=== PATIENT | male | born 1955 | race Caucasian/White ===

== ENCOUNTER 2017-09-05 09:23 | Emergency (ER) | payer MEDICARE ==
--- NOTE | 2017-09-05 11:48 | ED ---
Head Injury - HPI Summary HPI Summary: 61 presents to ED BIBA with complaints of falling from standing position, mechanical fall causing him to hit front head on floor just [employer]. Patient lives at [facility]. Patient did not lose consciousness and denies pain. No lacerations. No vomiting or vision changes. Patient is mainly non verbal although he does respond to questions by shaking head yes or no. Is severely demented. Small hematoma to right forehead. No neck pain or abdominal pain or other concerns for injury at this time. No anticoagulant use. Is able to bear weight and walk, however is unsteady on feet, which causes him to fall. Patient' s baseline. - History Of Current Complaint Chief Complaint: EDHeadInjury Stated Complaint: FALL Time Seen by Provider: 09/05/17 10:00 Hx Obtained From: Patient, Family/Methods And Procedures Analyst - long term, EMS Mechanism Of Injury: Fall From A Standing Position Onset/Duration: Started Hours Ago, Traumatic Severity Currently: None Pain Intensity: 0 Pain Scale Used: 0-10 Numeric Location of Head Injury: Frontal Associated Signs And Symptoms: Negative - however patient is demented therefore history and symptoms are limited - Allergies/Home Medications Allergies/Adverse Reactions: Allergies Allergy/AdvReac Type Severity Reaction Status Date / Time No Known Allergies Allergy Verified 09/05/17 10:06 Home Medications: Home Medications Atorvastatin* [Lipitor*] 20 mg PO DAILY 09/05/17 [History Confirmed 09/05/17] FLUoxetine CAP* [PROzac CAP*] 10 mg PO BID 09/05/17 [History Confirmed 09/05/17] Mirtazapine TAB* [Remeron TAB*] 30 mg PO BEDTIME 09/05/17 [History Confirmed ] Oxybutynin XL TAB* [Ditropan XL TAB*] 10 mg PO DAILY 09/05/17 [History Confirmed 09/05/17] QUEtiapine TAB* [SEROquel TAB*] 25 mg PO BEDTIME 09/05/17 [History Confirmed ] Ramipril CAP* [Altace CAP*] 5 mg PO DAILY 09/05/17 [History Confirmed 09/05/17] PMH/Surg Hx/FS Hx/Imm Hx Endocrine/Hematology History: Denies: Hx Anticoagulant Therapy Cardiovascular History: Reports: Hx Hypercholesterolemia, Hx Hypertension Denies: Hx Pacemaker/ICD History: Reports: Other Problems/Disorders - urinary incontinence Sensory History: Denies: Hx Hearing Aid Neurological History: Reports: Hx Dementia Psychiatric History: Denies: Hx Panic Disorder - Surgical History Surgery Procedure, Year, and Place: DENTAL SURGERY - Immunization History Immunizations Up to Date: Yes Infectious Disease History: No Infectious Disease History: Denies: Traveled Outside the [place] in Last 30 Days - Family History Known Family History: Positive: None - Social History Alcohol Use: None Substance Use Type: Reports: None Smoking Status (MU): Never Smoked Tobacco Review of Systems - ROS Summary Review of Systems Summary: patient shakes head no, although AMS due to dementia Constitutional: Negative Cardiovascular: Negative Respiratory: Negative Gastrointestinal: Negative Musculoskeletal: Negative Neurological: Negative All Other Systems Reviewed And Are Negative: Yes Physical Exam Triage Information Reviewed: Yes Vital Signs On Initial Exam: Initial Vitals BP 131/83 09/05/17 09:30 HR: 99 O2: 96 Temp: 99.2 Resp: 14 Vital Signs Reviewed: Yes Completion Of Physical Exam Limited Due To: Dementia Appearance: Positive: Well-Appearing, No Pain Distress, Well-Nourished Skin: Positive: Warm, Skin Color Reflects Adequate Perfusion, Dry, Other - small walnut sized hemoatoma on right front scalp without laceration ecchymosis or erythema. Negative: Cold, Numb, Cyanosis @, Pale, Erythema @ Head/Face: Positive: Normal Head/Face Inspection, Scalp - hematoma right frontal scalp as described above Eyes: Positive: Conjunctiva Clear ENT: Positive: Pharynx normal, Uvula midline, Other - does not appear to have broken denticia or bite tongue Neck: Positive: Supple, Nontender Respiratory/Lung Sounds: Positive: Clear to Auscultation, Breath Sounds Present. Negative: Rales, Rhonchi, Wheezes Cardiovascular: Positive: Normal, RRR, Pulses are Symmetrical in both Upper and Lower Extremities. Negative: Murmur, Rub Abdomen Description: Positive: Nontender, Soft Bowel Sounds: Positive: Present Musculoskeletal: Positive: Normal, Strength/ROM Intact Neurological: Positive: Normal, Sensory/Motor Intact, NV Bundle Intact Distally , Normal Gait - unsteady, patient's baseline, Facial Symmetry, Speech Normal - Shannan Coma Scale Best Eye Response: 4 - Spontaneous Best Motor Response: 6 - Obeys Commands Best Verbal Response: 4 - Confused - due to dementia, patient's baseline Coma Scale Total: 14 Diagnostics - Vital Signs Vital Signs Temp Pulse Resp BP Pulse Ox 09/05/17 10:33 118/66 09/05/17 10:12 99 94 09/05/17 10:00 99 117/98 95 09/05/17 09:33 99.2 F 100 14 131/83 96 09/05/17 09:32 103 95 09/05/17 09:30 131/83 - Laboratory Lab Statement: Any lab studies that have been ordered have been reviewed, and results considered in the medical decision making process. - CT brain CT Interpretation: No Acute Changes - Chronic findings as described above similar in appearance to the August 20, 2012 MRI of the brain without CT evidence of calvarial fracture or acute intracranial hemorrhage. CT Interpretation Completed By: Radiologist Re-Evaluation - Re-Evaluation First Eval Re-Evaluation Time: 12:01 Change: Unchanged - updated on results, still feeling fine and acting appropriately Head Injury Course/Dx Course Of Treatment: ct brain obtained and negative. appears to be at normal baseline. ice hematoma, tylenol/ibu as needed for pain if needed. no other concerns at this time. follow up with pcp. normal vitals and normal physical exam at this time. aware of worsening signs and symptoms to watch out for. - Diagnoses Differential Diagnosis/HQI/PQRI: Concussion Without LOC, Other - hematoma, head injury Provider Diagnoses: Traumatic hematoma of scalp, Head injury due to trauma Discharge - Discharge Plan Condition: Good Disposition: HOME Patient Education Materials: Head Injury (ED), Hematoma (ED) Referrals: Karina Carter MD [Primary Care Provider] - Additional Instructions: Ice hematoma. ibuprofen/tylenol as needed for discomfort. Increase fluid intake and get plenty of rest. Any new or worsening symptoms please seek medical attention and return to ED ( severe headache, pupil size changes, vomiting, altered mental status) Ct brain exam was normal and without acute findings. Follow up with PCP for recheck within 5-7 days.
--- NOTE | 2017-09-05 11:54 | RAD ---
INDICATION: Trauma and a patient with reported dementia COMPARISON: MRI of the brain dated August 20, 2012 TECHNIQUE: Contiguous axial sections of the brain were obtained from the skull base to the vertex without contrast. FINDINGS: Image quality is limited by patient motion artifact The ventricles, cisterns and sulci symmetrical involutional changes similar in appearance to the previous MR the brain.. There is mild periventricular and subcortical white matter hypoattenuation most consistent with chronic microvascular disease and similar in appearance to the previous MRI of the brain. Otherwise the minor-white matter differentiation is adequately maintained and there is no sulcal effacement. No significant focal abnormality or mass effect is present. There is no evidence for intracranial hemorrhage. No significant focal osseous abnormality is present. The visualized portion of the paranasal sinuses appear clear. The mastoid air cells are well aerated bilaterally. IMPRESSION: Chronic findings as described above similar in appearance to the August 20, 2012 MRI of the brain without CT evidence of calvarial fracture or acute intracranial hemorrhage.
[2017-09-05 12:35] VITALS: BP 00/00
== END 2017-09-05 12:30 | disposition home or self-care (01) ==
LOC: ED 09:23
DX: S00.03XA Contusion of scalp, initial encounter (principal); W18.30XA Fall on same level, unspecified, initial encounter; Y92.9 Unspecified place or not applicable
CPT/HCPCS: 70450; 99284

== ENCOUNTER 2018-01-19 18:59 | Observation (INO) | payer MEDICARE ==
--- OUTSIDE RECORDS SUMMARY | 2018-01-19 19:36 | XMS REPORT ---
:1955 External Reference #:[id number] Author Organization [employer] Address [address] [place] [address] [place] [address] Phone [phone] Care Team Providers Name Role Phone Krystin Shipley DO Care Team Information Biopsychologist Unavailable Karina Carter MD Primary Care Physician Unavailable Payers Type Date Identification Numbers Payment Provider Subscriber Medicare Primary Effective: Policy Number: Medicare Nolberto Peraltazoie 2013 [id number] PayID: [id number] [address] [place] [address] Medigap Part B Policy Number: [id number] [employer] Nolberto Martinezsourav PayID: [id number] [address] [place] [address] Medigap Part B Effective: Policy Number: BS Adiel Riojas Che 2012 [id number] Expires: 2013 PayID: [id number] [address] [address] Medigap Part B Effective: Policy Number: BS Adiel Riojas Che 2013 [id number] Expires: 2013 Group Name: [employer] [address] PayID: [id number] [id number] Problems Date Description Provider Status Onset: 08/12/2012 Benign essential hypertension Karina Carter M.D. Active Onset: 11/16/2012 Dementia Unspec W/O Behavioral Karina Carter M.D. Active Disturbance Onset: 08/15/2014 Melanoma in situ of skin (clinical) Karina Carter M.D. Active Onset: 05/15/2015 Essential hypertension Karina Carter M.D. Active Onset: 10/07/2017 Other frontotemporal dementia Krystin Shipley D.O. Active Onset: 10/07/2017 Dementia Krystin Shipley D.O. Active Onset: 10/07/2017 Hyperlipidemia Krystin Shipley D.O. Active Onset: 10/07/2017 Weight decreased Karina Carter M.D. Active Onset: 10/07/2017 Disease Armando Bill M.D. Active Onset: 10/07/2017 Mantoux: negative Nurse Visit A Active Onset: 10/07/2017 Other abnormalities of breathing Karina Carter M.D. Active Onset: 10/07/2017 Dyspnea Armando Bill M.D. Active Onset: 10/07/2017 Urinary incontinence Jacoby Dickson NP Active Onset: 10/07/2017 Mixed hyperlipidemia Karina Carter M.D. Active Onset: 10/07/2017 frontotemporal dementia,other Fide Onofre NP Active Onset: 10/07/2017 Adult health examination Karina Carter M.D. Active Onset: 10/07/2017 Viral disease Karina Carter M.D. Active Onset: 10/07/2017 History of malignant melanoma of the Karina Carter M.D. Active skin Onset: 10/07/2017 Diphtheria + pertussis + tetanus Karina Carter M.D. Active vaccine Onset: 10/07/2017 Cerebral degeneration Armando Bill M.D. 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 Also CAD onset in his 50s Social History Type Date Description Comments Marital Status Single never Lives With Mother 2015: unable to live independently due to dementia Occupation [employer]. 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 Ramipril 10/07 Active Capsules 5mg 1 by mouth I10 Megan every day POLY Vinson Atorvastatin 10/07 Active Tablets 20mg take 1 tablet E78.5 Megan at bedtime POLY Vinson Oxybutynin 10/07 Active Tablets ER 10mg 1 by mouth R32 Megan Chloride ER 24HR every day POLY Vinson Vitamin B-12 10/07 Active Tablets ER 1000mcg 1 tab PO qd D51.9 Megan ER Karel, POLY Melatonin 10/07 Active Capsules 3mg 1 tab PO QHS G47.00 Megan POLY Vinson Milk Of 10/07 Active Suspension 400mg/5ML 355ml 30ml daily q K59.00 Megan Magn 24 hrs prn Karel, for 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 Vitamin D3 10/07/2017 Active Capsules 2000U 1 by mouth E55.9 Megan nit every day POLY Vinson Mirtazapine 08/17/2017 Active Tablets 30mg 30tabs 1 by mouth R63.4 Armando Carias thom Bill M.D. 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 Quetiapine 07/10/2017 Hx Tablets 50mg 60tabs 2 po qhs R45.1 Armando S. Fumarate - Fly, 07/15/2017 M.DTanner Quetiapine 04/15/2017 Hx Tablets 25mg 60tabs 1 po qhs for R45.1 Armando S. Fumarate - 3 days then 2 Fly, 07/10/2017 q M.D. Ramipril 02/12/2015 Hx Capsules 5mg 90caps Take One I10 Karina - Capsule By Raul, 10/07/2017 Mouth Once M.D. Daily Ramipril 05/04/2014 Hx Capsules 2.5mg 90caps 1 by mouth 401.1 Karina - every day Raul, 02/12/2015 Bridget Ramipril 01/13/2014 Hx Capsules 1.25m 30caps 1 by mouth 401.1 Karina - g every day Raul, 05/04/2014 M.Bea Amlodipine 03/31/2013 Hx Tablets 10mg 90tabs 1 by mouth I10 Karina Besylate - every day Raul, 08/19/2016 MKarin Donepezil HCL 12/21/2012 Hx Tablets 5mg 90tabs 1 every day Armando Bill, 07/10/2017 MKarin Namenda 11/16/2012 Hx Tablets 10mg 180tabs bid po Armando Bill, 08/02/2013 M.DTanner Atorvastatin 10/22/2012 Hx Tablets 20mg 90tabs Take One Karina Calcium - Tablet By Raul, 10/07/2017 Mouth Once M.D. Daily Atorvastatin 09/06/2012 Hx Tablets 10mg 30tabs 1 po qd Karina Calcium - Raul, 10/22/2012 M.DTanner Amlodipine 08/27/2012 Hx Tablets 5mg 90tabs 1 po qd 401.1 Karina Besylate - Raul, 03/31/2013 M.DTanner Amlodipine 08/12/2012 Hx Tablets 2.5mg 30tabs 1 po qd 401.1 Karina Besylate - Raul, 08/27/2012 Bridget Centrum Silver Hx Tablets 1 po qd Unknown Ultra Mens - 08/19/2017 Oxybutynin Hx Tablets 10mg 1 by mouth Mel, Chloride ER - ER 24HR every day Akshat 10/07/2017 MD Vargas Hx Tablets 10mg Aydinseini, Chloride ER - ER 24HR MD Rashad 08/20/2017 Medications Administered in Office Medication Date Status Form Strength Qnty SIG Indications Ordering Provider PPD 03/09/20 Administered Injection Nurse Visit A 17 PPD 02/18/20 Administered Injection Karina Carter M.D. Immunizations CPT Code Status Date Vaccine Lot # [id number] Given 12/09/2013 Tdap - Tetanus/Diptheria/Acellular Pertussis [id number] Vital Signs Date Vital Result Comment 01/01/2018 Weight 163.50 lb Heart Rate 97 /min BP Systolic Sitting 130 mmHg BP Diastolic Sitting 72 mmHg Respiratory Rate 18 /min Body Temperature 98.4 F 12/16/2017 Heart Rate 78 /min BP Systolic Sitting 148 mmHg BP Diastolic Sitting 90 mmHg Respiratory Rate 20 /min Body Temperature 98.8 F O2 % BldC Oximetry 96 % 12/14/2017 Heart Rate 103 /min BP Systolic Sitting 130 mmHg BP Diastolic Sitting 60 mmHg Respiratory Rate 24 /min Body Temperature 100.9 F 12/04/2017 Heart Rate 69 /min BP Systolic 118 mmHg BP Diastolic 68 mmHg Respiratory Rate 18 /min Body Temperature 96.9 F O2 % BldC Oximetry 97 % 11/09/2017 Weight 179.50 lb Heart Rate 80 /min BP Systolic 120 mmHg BP Diastolic 70 mmHg Respiratory Rate 28 /min Body Temperature 97.4 F Pain Level 98 10/09/2017 Height 74 inches 6'2" Weight 182.12 lb Heart Rate 74 /min BP Systolic 134 mmHg BP Diastolic 86 mmHg BMI (Body Mass Index) 23.4 kg/m2 08/20/2017 Weight 185.00 lb Heart Rate 87 /min BP Systolic Sitting 130 mmHg BP Diastolic Sitting 72 mmHg O2 % BldC Oximetry 98 % 07/10/2017 Height 74 inches 6'2" Weight 193.12 lb Heart Rate 70 /min BP Systolic 140 mmHg BP Diastolic 86 mmHg BMI (Body Mass Index) 24.8 kg/m2 04/15/2017 Height 74 inches 6'2" Weight 195.00 lb Heart Rate 64 /min BP Systolic Sitting 128 mmHg BP Diastolic Sitting 78 mmHg Respiratory Rate 16 /min BMI (Body Mass Index) 25.0 kg/m2 02/16/2017 Height 74 inches 6'2" Weight 195.75 lb Heart Rate 65 /min BP Systolic 132 mmHg BP Diastolic 76 mmHg Body Temperature 97.5 F O2 % BldC Oximetry 98 % BMI (Body Mass Index) 25.1 kg/m2 08/19/2016 Weight 214.00 lb with shoes Heart Rate 80 /min BP Systolic 158 mmHg BP Diastolic 100 mmHg O2 % BldC Oximetry 98 % 02/18/2016 Weight 224.00 lb with shoes Heart Rate 65 /min BP Systolic Sitting 108 mmHg BP Diastolic Sitting 70 mmHg Body Temperature 96.4 F O2 % BldC Oximetry 96 % recheck 96 12/19/2015 Height 74 inches 6'2" Weight 222.00 lb Heart Rate 68 /min BP Systolic Sitting 130 mmHg BP Diastolic Sitting 84 mmHg Respiratory Rate 16 /min BMI (Body Mass Index) 28.5 kg/m2 09/21/2015 Heart Rate 87 /min BP Systolic Sitting 147 mmHg BP Diastolic Sitting 96 mmHg Body Temperature 97.2 F O2 % BldC Oximetry 87 % 08/17/2015 Weight 219.75 lb Heart Rate 74 /min BP Systolic Sitting 151 mmHg BP Diastolic Sitting 98 mmHg Body Temperature 98.4 F O2 % BldC Oximetry 97 % 05/15/2015 Height 72 inches 6'0" Weight 225.75 lb Heart Rate 75 /min BP Systolic Sitting 161 mmHg BP Diastolic Sitting 97 mmHg Body Temperature 97.3 F O2 % BldC Oximetry 98 % BMI (Body Mass Index) 30.6 kg/m2 04/11/2015 Height 72 inches 6'0" Weight 232.00 lb Heart Rate 68 /min BP Systolic Sitting 130 mmHg BP Diastolic Sitting 94 mmHg Respiratory Rate 14 /min BMI (Body Mass Index) 31.5 kg/m2 02/12/2015 Height 72 inches 6'0" Weight 232.00 lb Heart Rate 87 /min BP Systolic Sitting 140 mmHg recheck 140/100 BP Diastolic Sitting 96 mmHg recheck 140/100 Body Temperature 98.1 F O2 % BldC Oximetry 98 % BMI (Body Mass Index) 31.5 kg/m2 10/11/2014 Height 72 inches 6'0" Weight 228.00 lb Heart Rate 64 /min BP Systolic Sitting 126 mmHg BP Diastolic Sitting 80 mmHg Respiratory Rate 16 /min BMI (Body Mass Index) 30.9 kg/m2 08/15/2014 Height 72 inches 6'0" Weight 234.00 lb Heart Rate 92 /min BP Systolic 116 mmHg BP Diastolic 76 mmHg Body Temperature 98.6 F BMI (Body Mass Index) 31.7 kg/m2 05/04/2014 BP Systolic Sitting 160 mmHg BP Diastolic Sitting 98 mmHg 04/20/2014 Height 73 inches 6'1" Weight 237.00 lb Heart Rate 82 /min BP Systolic Sitting 140 mmHg BP Diastolic Sitting 100 mmHg BMI (Body Mass Index) 31.3 kg/m2 02/15/2014 Height 73 inches 6'1" Weight 230.00 lb Heart Rate 88 /min BP Systolic Sitting 160 mmHg BP Diastolic Sitting 100 mmHg Respiratory Rate 16 /min BMI (Body Mass Index) 30.3 kg/m2 01/13/2014 Height 73 inches 6'1" Weight 229.00 lb Heart Rate 80 /min BP Systolic Sitting 142 mmHg BP Diastolic Sitting 106 mmHg Body Temperature 98.9 F BMI (Body Mass Index) 30.2 kg/m2 12/09/2013 Weight 233.00 lb Heart Rate 82 /min BP Systolic 180 mmHg BP Diastolic 120 mmHg BP Systolic Sitting 138 mmHg BP Diastolic Sitting 82 mmHg 08/02/2013 Heart Rate 84 /min BP Systolic Sitting 144 mmHg BP Diastolic Sitting 92 mmHg Respiratory Rate 16 /min 12/21/2012 Heart Rate 74 /min BP Systolic Sitting 130 mmHg BP Diastolic Sitting 88 mmHg Respiratory Rate 15 /min 11/16/2012 Heart Rate 76 /min BP Systolic Sitting 150 mmHg BP Diastolic Sitting 100 mmHg Respiratory Rate 12 /min 10/22/2012 Weight 214.00 lb Heart Rate 94 /min BP Systolic Sitting 132 mmHg BP Diastolic Sitting 84 mmHg 08/27/2012 Height 72.5 inches 6'0.50" Weight 219.00 lb Heart Rate 96 /min BP Systolic Sitting 160 mmHg BP Diastolic Sitting 100 mmHg BMI (Body Mass Index) 29.3 kg/m2 08/12/2012 Height 72.5 inches 6'0.50" Weight 218.00 lb Heart Rate 92 /min BP Systolic Standing 190 mmHg recheck by me R: 200/112, L: 190/112 BP Diastolic Standing 110 mmHg recheck by me R: 200/112, L: 190/112 BMI (Body Mass Index) 29.2 kg/m2 Results Test Date Test Result H/L Range Note Lipid Profile (Trig/Chol/HDL) 02/10/2017 Triglycerides 146 mg/dL 1 Cholesterol 185 mg/dL 2 HDL Cholesterol 57.4 mg/dL 3 LDL Cholesterol 98 mg/dL 4 Comp Metabolic Panel 02/10/2017 Sodium 140 mmol/L 133-145 Potassium 4.2 mmol/L 3.5-5.0 Chloride 102 mmol/L 101-111 Co2 Carbon Dioxide 31 mmol/L 22-32 Anion Gap 7 mmol/L 2-11 Glucose 93 mg/dL 70-100 Blood Urea Nitrogen 15 mg/dL 6-24 Creatinine 0.96 mg/dL 0.67-1.17 BUN/Creatinine Ratio 15.6 8-20 Calcium 9.6 mg/dL 8.6-10.3 Total Protein 6.9 g/dL 6.4-8.9 Albumin 4.4 g/dL 3.2-5.2 Globulin 2.5 g/dL 2-4 Albumin/Globulin Ratio 1.8 1-3 Total Bilirubin 0.80 mg/dL 0.2-1.0 Alkaline Phosphatase 40 U/L 34-104 Alt 21 U/L 7-52 Ast 17 U/L 13-39 Egfr Non- 79.1 >60 Egfr 101.7 >60 5 Laboratory test finding 02/10/2017 TSH (Thyroid Stim Horm) 1.94 mcIU/mL 0.34-5.60 6 Lipid Profile 02/13/2016 Triglycerides 119 mg/dL 7 (Trig/Chol/HDL) Cholesterol 181 mg/dL 8 HDL Cholesterol 58.5 mg/dL 9 LDL Cholesterol 99 mg/dL 10 Comp Metabolic Panel 02/13/2016 Sodium 137 mmol/L 133-145 Potassium 4.0 mmol/L 3.5-5.0 Chloride 100 mmol/L Low 101-111 Co2 Carbon Dioxide 31 mmol/L 22-32 Anion Gap 6 mmol/L 2-11 Glucose 96 mg/dL 70-100 Blood Urea Nitrogen 15 mg/dL 6-24 Creatinine 0.93 mg/dL 0.67-1.17 BUN/Creatinine Ratio 16.1 8-20 Calcium 9.8 mg/dL 8.6-10.3 Total Protein 7.1 g/dL 6.4-8.9 Albumin 4.5 g/dL 3.2-5.2 Globulin 2.6 g/dL 2-4 Albumin/Globulin Ratio 1.7 1-3 Total Bilirubin 0.70 mg/dL 0.2-1.0 Alkaline Phosphatase 43 U/L 34-104 Alt 30 U/L 7-52 Ast 26 U/L 13-39 Egfr Non- 82.3 >60 Egfr 105.9 >60 11 Urinalysis Profile 09/24/2015 Urine Color Yellow Urine Appearance Clear Urine Specific Elizabeth 1.015 1.010-1.030 Urine pH 7.0 5-9 Urine Urobilinogen Negative Negative Urine Ketones Negative Negative Urine Protein Negative Negative Urine Leukocytes Negative Negative Urine Blood Negative Negative Urine Nitrite Negative Negative Urine Bilirubin Negative Negative Urine Glucose Negative Negative Urine Culture And Sensitivities 09/24/2015 Urine Culture SEE RESULT BELOW 12 Lipid Profile (Trig/Chol/HDL) 02/08/2015 Cholesterol 197 mg/dL 13 HDL Cholesterol 52.2 mg/dL 14 Triglycerides 152 mg/dL 15 LDL Cholesterol 114 mg/dL 16 Comp Metabolic Panel 02/08/2015 Sodium 140 mmol/L 133-145 Potassium 4.1 mmol/L 3.5-5.0 Chloride 102 mmol/L 101-111 Co2 Carbon Dioxide 30 mmol/L 22-32 Anion Gap 8 mmol/L 2-11 Glucose 95 mg/dL 70-100 Blood Urea Nitrogen 14 mg/dL 6-24 Creatinine 1.02 mg/dL 0.67-1.17 BUN/Creatinine Ratio 13.7 8-20 Calcium 9.6 mg/dL 8.6-10.3 Total Protein 7.1 g/dL 6.4-8.9 Albumin 4.6 g/dL 3.2-5.2 Globulin 2.5 g/dL 2-4 Albumin/Globulin Ratio 1.8 1-3 Total Bilirubin 0.70 mg/dL 0.2-1.0 Alkaline Phosphatase 38 U/L 34-104 Alt 22 U/L 7-52 Ast 15 U/L 13-39 Egfr Non- 74.2 >60 Egfr 95.5 >60 17 Basic Metabolic Panel 02/24/2014 Sodium 136 mmol/L 133-145 Potassium 4.4 mmol/L 3.7-5.6 Chloride 100 mmol/L Low 101-111 Co2 Carbon Dioxide 30 mmol/L 22-32 Anion Gap 6 mmol/L 2-11 Glucose 126 mg/dL High 70-100 Blood Urea Nitrogen 14 mg/dL 6-24 Creatinine 1.06 mg/dL 0.67-1.17 BUN/Creatinine Ratio 13.2 8-20 Calcium 9.8 mg/dL 8.6-10.3 Egfr Non- 71.3 >60 Egfr 91.7 >60 18 Comp Metabolic Panel 01/10/2014 Sodium 139 mmol/L 133-145 19 Potassium 4.0 mmol/L 3.7-5.6 19 Chloride 100 mmol/L Low 101-111 19 Co2 Carbon Dioxide 31 mmol/L 22-32 19 Anion Gap 8 mmol/L 2-11 19 Glucose 94 mg/dL 70-100 19 Blood Urea Nitrogen 16 mg/dL 6-24 19 Creatinine 0.96 mg/dL 0.67-1.17 19 BUN/Creatinine Ratio 16.7 8-20 19 Calcium 9.6 mg/dL 8.6-10.3 19 Total Protein 7.3 g/dL 6.4-8.9 19 Albumin 4.6 g/dL 3.2-5.2 19 Globulin 2.7 g/dL 2-4 19 Albumin/Globulin Ratio 1.7 1-3 19 Total Bilirubin 0.80 mg/dL 0.2-1.0 19 Alkaline Phosphatase 45 U/L 34-104 19 Alt 23 U/L 7-52 19 Ast 15 U/L 13-39 19 Egfr Non- 79.9 >60 19 Egfr 102.8 >60 19, 20 Lipid Profile (Trig/Chol/HDL) 01/10/2014 Triglycerides 171 mg/dL 19, 21 Cholesterol 194 mg/dL 19, 22 HDL Cholesterol 53.5 mg/dL 19, 23 LDL Cholesterol 106 mg/dL 19, 24 Comp Metabolic Panel 10/12/2012 Sodium 139 mmol/L 133-145 Potassium 4.3 mmol/L 3.5-5.0 Chloride 101 mmol/L 101-111 Co2 Carbon Dioxide 32.0 mmol/L 22-32 Anion Gap 6.0 mmol/L 2-11 Glucose 82 mg/dL 70-100 Blood Urea Nitrogen 16 mg/dL 6-24 Creatinine 0.90 mg/dL 0.50-1.40 BUN/Creatinine Ratio 17.8 8-20 Calcium 9.8 mg/dL 8.1-9.9 Total Protein 6.9 g/dL 6.2-8.1 Albumin 4.2 g/dL 3.6-5.4 Globulin 2.7 g/dL 2-4 Albumin/Globulin Ratio 1.6 1-3 Total Bilirubin 0.8 mg/dL 0.4-1.5 Alkaline Phosphatase 50 U/L 30-110 Alt 25 U/L 14-54 Ast 20 U/L 12-42 Egfr Non- 86.7 >60 Egfr 111.5 >60 25 Urinalysis W/Microscopic 08/27/2012 Urine Color Yellow Urine Appearance Clear Urine Specific Elizabeth 1.026 1.010-1.030 Urine Esterase Negative Negative Urine Nitrate Negative Negative Urine Urobilinogen Negative E.U./dL Negative Urine Protein Negative mg/dL Negative Urine pH 7.0 5-9 Urine Blood Negative Negative Urine Ketones Negative mg/dL Negative Urine Bilirubin Negative Negative Urine Glucose Negative mg/dL Negative Urine WBC None Seen None Seen Urine RBC None Seen None Seen Urine Mucus Present /lpf Absent Urine Epithelial Cells 1+ Squamous /hpf None Seen Crystals Urine Calcium Oxalate /lpf None Seen Syphilis Screen 08/17/2012 Syphilis IgG Nonreactive Nonreactive 26 RPR TNP Nonreactive RPR Titer TNP Pediatric/Maternal NO Laboratory test finding 08/17/2012 TSH (Thyroid Stimulating 2.07 miu/mL 0.34-5.60 27 Horm) Comp Metabolic Panel 08/17/2012 Sodium 141 mmol/L 133-145 Potassium 4.2 mmol/L 3.5-5.0 Chloride 103 mmol/L 101-111 Co2 Carbon Dioxide 29.0 mmol/L 22-32 Anion Gap 9.0 mmol/L 2-11 Glucose 93 mg/dL 70-100 Blood Urea Nitrogen 19 mg/dL 6-24 Creatinine 0.90 mg/dL 0.50-1.40 BUN/Creatinine Ratio 21.1 High 8-20 Calcium 10.0 mg/dL High 8.1-9.9 Total Protein 6.8 g/dL 6.2-8.1 Albumin 4.5 g/dL 3.6-5.4 Globulin 2.3 g/dL 2-4 Albumin/Globulin Ratio 2.0 1-3 Total Bilirubin 0.8 mg/dL 0.4-1.5 Alkaline Phosphatase 41 U/L 30-110 Alt 22 U/L 14-54 Ast 17 U/L 12-42 Egfr Non- 86.7 >60 Egfr 111.5 >60 28 Lipid Profile (Trig/Chol/HDL) 08/17/2012 Triglycerides 146 mg/dL 40-200 Cholesterol 261 mg/dL High Less than 200 HDL Cholesterol 53 mg/dL 40-60 29 Cholesterol/HDL Ratio 4.9 Average High 1-4.44 LDL Cholesterol 178.8 mg/dL High Less Than 100 30 Laboratory test finding 08/17/2012 Vitamin B12 411 pg/mL 180-914 31 1 Desirable <150 Borderline high 150-199 High 200-499 Very High >500 2 Desirable <200 Borderline high 200-239 High >239 3 Low <40 Desirable: 40-60 High: >60 4 Desirable: <100 mg/dL Near Optimal: 100-129 mg/dL Borderline High: 130-159 mg/dL High: 160-189 mg/dL Very High: >189 mg/dL 5 Because ethnic data is not always readily available, this report includes an eGFR for both -Americans and non- Americans. The National Kidney Disease Education Program (NKDEP) does not endorse the use of the MDRD equation for patients that are not between the ages of 18 and 70, are , have extremes of body size, muscle mass, or nutritional status, or are non- or non-. According to the National Kidney Foundation, irrespective of diagnosis, the stage of the disease is based on the level of kidney function: Stage Description GFR(mL/min/1.73 m(2)) 1 Kidney damage with normal or decreased GFR 90 2 Kidney damage with mild decrease in GFR 60-89 3 Moderate decrease in GFR 30-59 4 Severe decrease in GFR 15-29 5 Kidney failure <15 (or dialysis) 6 FASTING 10 HOUR DUE IN 6 MONTHS 7 Desirable <150 Borderline high 150-199 High 200-499 Very High >500 8 Desirable <200 Borderline high 200-239 High >239 9 Low <40 Desirable: 40-60 High: >60 10 Desirable: <100 mg/dL Near Optimal: 100-129 mg/dL Borderline High: 130-159 mg/dL High: 160-189 mg/dL Very High: >189 mg/dL 11 Because ethnic data is not always readily available, this report includes an eGFR for both -Americans and non- Americans. The National Kidney Disease Education Program (NKDEP) does not endorse the use of the MDRD equation for patients that are not between the ages of 18 and 70, are , have extremes of body size, muscle mass, or nutritional status, or are non- or non-. According to the National Kidney Foundation, irrespective of diagnosis, the stage of the disease is based on the level of kidney function: Stage Description GFR(mL/min/1.73 m(2)) 1 Kidney damage with normal or decreased GFR 90 2 Kidney damage with mild decrease in GFR 60-89 3 Moderate decrease in GFR 30-59 4 Severe decrease in GFR 15-29 5 Kidney failure <15 (or dialysis) 12 SEE RESULT BELOW Name: CHENOLBERTO : [address]: Jacoby Dickson NP Acct: [id number] Unit: [id number] AGE: 59 Location: [facility] Re09/24/15 SEX: M Status: REG REF SPEC: [id number] LOIS: 09/24/[address] [facility] [address]: Jacoby Dickson NP REQ: [id number] RECD: 09/24/15 STATUS: COMP _ SOURCE: URINE SPDESC: ORDERED: Urine Culture Procedure Result Reported Site Urine Culture Final 09/25/15- 1222 ML No Growth (<1,000 CFU/mL) * ML - MAIN LAB ([facility]) . END OF REPORT * ML=Testing performed at Main Lab DEPARTMENT OF PATHOLOGY, [address] [place] [address] Keanu Vergara M.D. Director [facility] # [id number] 13 Desirable <200 Borderline high 200-239 High >239 14 Low <40 Desirable: 40-60 High: >60 15 Desirable <150 Borderline high 150-199 High 200-499 Very High >500 16 Desirable: <100 mg/dL Near Optimal: 100-129 mg/dL Borderline High: 130-159 mg/dL High: 160-189 mg/dL Very High: >189 mg/dL 17 Because ethnic data is not always readily available, this report includes an eGFR for both -Americans and non- Americans. The National Kidney Disease Education Program (NKDEP) does not endorse the use of the MDRD equation for patients that are not between the ages of 18 and 70, are , have extremes of body size, muscle mass, or nutritional status, or are non- or non-. According to the National Kidney Foundation, irrespective of diagnosis, the stage of the disease is based on the level of kidney function: Stage Description GFR(mL/min/1.73 m(2)) 1 Kidney damage with normal or decreased GFR 90 2 Kidney damage with mild decrease in GFR 60-89 3 Moderate decrease in GFR 30-59 4 Severe decrease in GFR 15-29 5 Kidney failure <15 (or dialysis) 18 Because ethnic data is not always readily available, this report includes an eGFR for both -Americans and non- Americans. The National Kidney Disease Education Program (NKDEP) does not endorse the use of the MDRD equation for patients that are not between the ages of 18 and 70, are , have extremes of body size, muscle mass, or nutritional status, or are non- or non-. According to the National Kidney Foundation, irrespective of diagnosis, the stage of the disease is based on the level of kidney function: Stage Description GFR(mL/min/1.73 m(2)) 1 Kidney damage with normal or decreased GFR 90 2 Kidney damage with mild decrease in GFR 60-89 3 Moderate decrease in GFR 30-59 4 Severe decrease in GFR 15-29 5 Kidney failure <15 (or dialysis) 19 FASTING 20 Because ethnic data is not always readily available, this report includes an eGFR for both -Americans and non- Americans. The National Kidney Disease Education Program (NKDEP) does not endorse the use of the MDRD equation for patients that are not between the ages of 18 and 70, are , have extremes of body size, muscle mass, or nutritional status, or are non- or non-. According to the National Kidney Foundation, irrespective of diagnosis, the stage of the disease is based on the level of kidney function: Stage Description GFR(mL/min/1.73 m(2)) 1 Kidney damage with normal or decreased GFR 90 2 Kidney damage with mild decrease in GFR 60-89 3 Moderate decrease in GFR 30-59 4 Severe decrease in GFR 15-29 5 Kidney failure <15 (or dialysis) 21 Desirable <150 Borderline high 150-199 High 200-499 Very High >500 22 Desirable <200 Borderline high 200-239 High >239 23 Low <40 Desirable: 40-60 High: >60 24 Desirable <100 Near Optimal 100-129 Borderline high 130-159 High 160-189 Very High >189 25 Because ethnic data is not always readily available, this report includes an eGFR for both -Americans and non- Americans. The National Kidney Disease Education Program (NKDEP) does not endorse the use of the MDRD equation for patients that are not between the ages of 18 and 70, are , have extremes of body size, muscle mass, or nutritional status, or are non- or non-. According to the National Kidney Foundation, irrespective of diagnosis, the stage of the disease is based on the level of kidney function: Stage Description GFR(mL/min/1.73 m(2)) 1 Kidney damage with normal or decreased GFR 90 2 Kidney damage with mild decrease in GFR 60-89 3 Moderate decrease in GFR 30-59 4 Severe decrease in GFR 15-29 5 Kidney failure <15 (or dialysis) 26 Warning: A positive result is not useful for establishing a diagnosis of syphilis. In most situations, such a result may reflect a prior treated infection; a negative result can exclude a diagnosis of syphilis except for incubating or early primary disease. 27 FASTING 28 Because ethnic data is not always readily available, this report includes an eGFR for both -Americans and non- Americans. The National Kidney Disease Education Program (NKDEP) does not endorse the use of the MDRD equation for patients that are not between the ages of 18 and 70, are , have extremes of body size, muscle mass, or nutritional status, or are non- or non-. According to the National Kidney Foundation, irrespective of diagnosis, the stage of the disease is based on the level of kidney function: Stage Description GFR(mL/min/1.73 m(2)) 1 Kidney damage with normal or decreased GFR 90 2 Kidney damage with mild decrease in GFR 60-89 3 Moderate decrease in GFR 30-59 4 Severe decrease in GFR 15-29 5 Kidney failure <15 (or dialysis) 29 HDL Interpretation: Undesirable: High Risk: Less than 40 MG/DL Desirable: Low Risk: Greater than 60 MG/DL 30 LDL Interpretation: Low Risk Optimal Level: LDL Less than 100 MG/DL Near or Above Optimal: LDL 100-129 MG/DL Borderline High Risk: LDL 130-159 MG/DL High Risk: LDL 160-189 MG/DL Very High Risk: LDL Greater than 189 MG/DL 31 FASTING Procedures Date CPT Code Description Status 08/12/2012 05692 EKG Tracing & Interpretation Completed Encounters Type Date Location Provider CPT E/M Dx Office Visit 12/16/2017 10:00a Samanta Vinson, LAP MACHINE OPERATOR 68797 R10.9 Office Visit 12/15/2017 8:15a Samanta Vinson, LAP MACHINE OPERATOR 46342 R10.9 Office Visit 12/14/2017 8:15a Samanta Vinson, LAP MACHINE OPERATOR 74700 R10.9 R11.10 Office Visit 12/04/2017 10:00a [facility] Krystin Shipley D.O. 88505 Z91.83 F02.81 G31.09 E78.2 I10 Z66 Office Visit 11/09/2017 11:45a [facility] Krystin Shipley D.O. 47847 Z91.83 F02.81 G31.09 E78.2 I10 Z66 Office Visit 10/09/2017 3:15p [facility] Armando Bill 99790 G31.09 Bridget R63.4 Office Visit 10/05/2017 10:45a [facility] [place] [address] G31.09 E78.2 I10 Office Visit 09/10/2017 8:00a [facility] Krystin Shipley D.O. 72602 G31.09 F02.80 I10 E78.5 Office Visit 08/20/2017 8:40a [facility] Karina Carter M.D. 62344 I10 - [place] R63.4 E78.5 Office Visit 07/10/2017 2:30p [facility] Bill, 34876 R45.1 Bridget G31.09 Office Visit 04/15/2017 10:45a [facility] Arm[facility] Bill 03320 G31.09 Bridget R45.1 Office Visit 02/16/2017 8:40a [facility] Karina Carter M.D. 03502 I10 - [place] R63.4 Office Visit 08/19/2016 10:00a [facility] Karina Carter M.D. 58122 I10 - [place] G31.09 R63.4 E78.5 Office Visit 02/18/2016 2:20p [facility] Yue Carter M.D. 06925 I10 - [place] Z11.1 R06.89 Office Visit 12/19/2015 8:45a [facility] Armando Bill, 80127 G31.09 Services Of Mule Driver M.D. R06.02 Office Visit 09/21/2015 3:40p [facility] [place] [address] R32 - [place] Office Visit 08/17/2015 3:20p [facility] Karina Carter 78845 I10 - [place] M.DTanner Office Visit 05/15/2015 3:40p [facility] Karina Carter 03114 I10 - [place] M.DTanner Office Visit 04/11/2015 11:00a [facility] Armando Bill 41594 G31.09 Services [facility] Mule Driver M.D. Office Visit 02/12/2015 3:40p [facility] Karina Carter 48045 401.1 - [place] Bridget 272.2 Office Visit 10/11/2014 2:45p [place] [address] 331.19 [facility] Driver Office Visit 05/04/2014 8:30a [facility] [place] A [address] 401.1 - [place] Office Visit 04/20/2014 8:40a [facility] Karina Carter 35459 401.1 - [place] M.D. V10.82 Office Visit 02/15/2014 2:30p [facility] Arm[facility] Bill 17855 331.19 Services [facility] Mule Driver M.D. Office Visit 01/13/2014 10:20a [facility] Karina Carter 14493 401.1 - [place] M.D. Office Visit 12/09/2013 1:00p [facility] Karina Carter 83317 401.1 - [place] M.Bea 272.2 V10.82 V06.1 Office Visit 08/02/2013 9:30a [facility] Armando Bill 14490 331.19 Services [facility] Mule Driver M.D. Office Visit 12/21/2012 1:45p [facility] Armando Bill 46677 331.9 Services [facility] Mule Driver M.D. 294.20 Office Visit 11/16/2012 9:00a [facility] Armando Bill, 89588 331.9 Services Of Marley Gill Office Visit 10/22/2012 9:40a [facility] Karina Carter 66848 401.1 - [place] Gill 272.2 Office Visit 08/27/2012 11:40a [facility] Karina Carter 67216 401.1 - [place] Gill 272.2 Office Visit 08/12/2012 4:00p [facility] Karina Carter, 40635 780.93 - [place] Gill 401.1 238.2 Plan of Care Future Appointment(s):02/25/2018 7:40 am - Karina Carter M.D. at [facility] - Hbskkrhli19/20/2018 - Armando Bill M.D.G31.09 Other frontotemporal dementiaFollow up:PRNRecommendations:increase serequel to 50 mg twice a day
[2018-01-19] MEDS ORDERED: NS 0.9% 1000 ML* 1,000 ML IV ONE (19:40)
--- NOTE | 2018-01-19 19:42 | ED ---
GI/ HPI - HPI Summary HPI Summary: This is shila [place] documenting for attending Antonio Ibrahim MD. This patient is a 62 year old M BIBA to [facility] accompanied by his after [facility] for [facility]emesis. The patients reports that the [facility] saw the patient have one episode of brown/ red emesis earlier today. She also reports that the patient has been constipated for the past 4 days. LEVEL 5 CAVEAT: Exam limited due to the patients severe dementia and lack of verbalization. - History of Current Complaint Chief Complaint: EDGIBleed Time Seen by Provider: 01/19/18 19:23 Stated Complaint: VOMITING BLOOD Hx Obtained From: Family/Door Paneler Onset/Duration: Still Present Timing: Intermittent Severity: Moderate Current Severity: None Pain Intensity: 0 Associated Signs and Symptoms: Positive: Hematemesis, Other: - constipation - Allergy/Home Medications Allergies/Adverse Reactions: Allergies Allergy/AdvReac Type Severity Reaction Status Date / Time No Known Allergies Allergy Verified 09/05/17 10:06 PMH/Surg Hx/FS Hx/Imm Hx Endocrine/Hematology History: Denies: Hx Anticoagulant Therapy Cardiovascular History: Reports: Hx Hypercholesterolemia, Hx Hypertension Denies: Hx Pacemaker/ICD History: Reports: Other Problems/Disorders - urinary incontinence Sensory History: Denies: Hx Hearing Aid Neurological History: Reports: Hx Dementia Psychiatric History: Denies: Hx Panic Disorder - Surgical History Surgery Procedure, Year, and Place: DENTAL SURGERY Infectious Disease History: Yes Infectious Disease History: Denies: Traveled Outside the [place] in Last 30 Days - Family History Known Family History: Positive: None - Social History Alcohol Use: None Substance Use Type: Reports: None Smoking Status (MU): Never Smoked Tobacco Review of Systems - ROS Summary Review of Systems Summary: LEVEL 5 CAVEAT: Exam limited due to the patients severe dementia and lack of verbalization. Positive: Fever Positive: Other - vomit with blood and constipation All Other Systems Reviewed And Are Negative: No Physical Exam - Summary Physical Exam Summary: Appearance: confused Skin: warm, dry, reflects adequate perfusion Head/face: normal Eyes: EOMI, NOHEMY ENT: dry mucus membranes Neck: supple, non-tender Respiratory: CTA, breath sounds present Cardiovascular: RRR, pulses symmetrical Abdomen: distended Bowel: present Musculoskeletal: normal, strength/ROM intact Neuro: alert and confused Rectal: there is fecal impaction, sample sent to lab Triage Information Reviewed: Yes Vital Signs On Initial Exam: Initial Vitals Temp Pulse Resp BP Pulse Ox 100.4 F 127 16 127/100 96 01/19/18 19:18 01/19/18 19:18 01/19/18 19:18 01/19/18 19:18 01/19/18 19:18 Vital Signs Reviewed: Yes Completion Of Physical Exam Limited Due To: Dementia, Level 5 Diagnostics - Vital Signs Vital Signs Temp Pulse Resp BP Pulse Ox 01/19/18 19:18 100.4 F 127 16 127/100 96 - Laboratory Result Diagrams: 01/19/18 20:17 01/19/18 20:17 Lab Statement: Any lab studies that have been ordered have been reviewed, and results considered in the medical decision making process. - Radiology CXR Radiology Interpretation Completed By: Radiologist - No radiographic evidence for acute cardiopulmonary abnormality on this portable chest x-ray. 2. There are pathologically dilated air-filled loops of small bowel measuring up to 3.8 cm in the right hemiabdomen. Please correlate to signs or symptoms of bowel obstruction. ED physician has reviewed this radiology report. - EKG 2035 Cardiac Rate: Tachycardia EKG Rhythm: Sinus Tachycardia - at 123 BPM EKG Interpretation: No acute changes GIGU Course/Dx - Course Assessment/Plan: This patient is a 62 year old M BIBA to [facility] accompanied by his after being [facility] from the [facility] for hematemesis. The patients reports that the [facility] saw the patient have one episode of brown/red emesis. She also reports that the patient has been constipated for the past 4 days. LEVEL 5 CAVEAT: Exam limited due to the patients severe dementia and lack of verbalization. An EKG reveals sinus tachycardia. CXR reveals, per radiologist, 1. No radiographic evidence for acute cardiopulmonary abnormality on this portable chest. x-ray. 2. There are pathologically dilated air-filled loops of small bowel measuring up to 3.8 cm. in the right debbi abdomen. Please correlate to signs or symptoms of bowel obstruction. CT ABD/Pelvis reveals, per radiology, the findings are concerning for early or partial distal small bowel obstruction, but assessment is severley limted by motion artifact and transition point is not visualized. No evidence of perforations. 2. Stomach and visulaized lower half of the espoghaus distended with fluid and air. The patient is at risk of aspiration. 3. Large amount of stool in the distal sigmoid colon and rectum. 4. Ill-defined right lower lobe opacitites, possibly atelectasis and inflammation change. Blood work obtained. d/w dr mitchell and recommendd admission to [facility]. We discussed patient care with Dr. Pitts and they accepted the patient for admission. - Diagnoses Differential Diagnoses - Male: Diverticulitis, Bowel Obstruction, Renal Calculi Provider Diagnoses: SBO (small bowel obstruction), Dementia, Vomiting - Physician Notifications Discussed Care Of Patient With: Nancy Pitts Time Discussed With Above Provider: 23:35 Instructed by Provider To: Admit As Inpatient Discharge - Sign-Out/Discharge Documenting (check all that apply): Patient Departure - Discharge Plan Condition: Stable Disposition: ADMITTED TO [facility] Referrals: Karina Carter MD [Primary Care Provider] - - Billing Disposition and Condition Condition: STABLE Disposition: Admitted to [facility]
--- NOTE | 2018-01-19 20:19 | RAD ---
INDICATION: Emesis COMPARISON: None. TECHNIQUE: Single AP portable view of the chest was obtained. FINDINGS: Image quality is compromised due to the relative inferiority of a portable chest x-ray. The heart and mediastinum exhibit normal size and contour. The lungs are grossly clear. There is no evidence of a large pleural effusion. Visualized bones are normal for the patient's age. There are dilated loops of air-filled small bowel measuring up to 3.8 cm in diameter overlying the right abdomen. IMPRESSION: 1. No radiographic evidence for acute cardiopulmonary abnormality on this portable chest x-ray. 2. There are pathologically dilated air-filled loops of small bowel measuring up to 3.8 cm in the right hemiabdomen. Please correlate to signs or symptoms of bowel obstruction.
[2018-01-19 20:34] LABS: ABS Basophils 0.1 10^3/ul (0-0.2); ABS Eosinophils 0 10^3/ul (0-0.6); ABS Monocytes 1.3 10^3/ul (0-0.8); ABS Neutrophils 15.7 10^3/ul (1.5-7.7); ABS Nucleated RBC 0 10^3/ul; Eosinophil % 0.1 % (0-6); Hematocrit 46 % (42-52); Hemoglobin 15.8 g/dl (14.0-18.0); Lymphocyte % 5.7 % (25-47); Mean Corpuscular HGB Conc 35 g/dl (31-36); Mean Corpuscular Hemoglobin 31 pg (27-31); Mean Corpuscular Volume 88 fL (80-94); Mean Platelet Volume 6.5 um3 (7.4-10.4); Nucleated Red Blood Cells % 0; Platelet Count 480 10^3/ul (150-450); Red Blood Count 5.18 10^6/ul (4.00-5.40); Red Cell Distribution Width 14 % (10.5-15); White Blood Count 18.1 10^3/ul (3.5-10.8)
[2018-01-19 20:40] LABS: INR 0.97 (0.77-1.02)
[2018-01-19 20:44] LABS: EGFR Non-African American 83.9 (>60)
[2018-01-19] MEDS ORDERED: Iohexol 300* (CONTRAST) 10 ML SDV IV ONE (20:58)
[2018-01-19] MEDS ORDERED: LORazepam INJ* 2 MG/ML 1 ML VIAL ONE (21:47)
[2018-01-19] MEDS ORDERED: LORazepam INJ* 2 MG/ML 1 ML VIAL IV PUSH ONE (22:21)
[2018-01-20] MEDS ORDERED: Acetaminophen TAB* 325 MG PO PRN (00:04)
[2018-01-20] MEDS ORDERED: Ondansetron INJ* 2 MG/ML VIAL IV PRN (00:04)
[2018-01-20] MEDS ORDERED: Albuterol 2.5 MG/3 ML NEB.SOL* (0.083%) INH PRN (00:04)
[2018-01-20] MEDS ORDERED: Magnesium Hydroxide LIQ* 30 ML UDC PO PRN (00:04)
[2018-01-20] MEDS ORDERED: Al Hydrox/Mg Hydrox/Simet LIQ* 30 ML UDC PO PRN (00:04)
[2018-01-20] MEDS ORDERED: Ciprofloxacin 400MG IVPREMIX(* 400 MG/200 ML BAG IVPB ONE (00:41)
[2018-01-20] MEDS ORDERED: metroNIDAZOLE IV 500 MG/100ML* 500 MG/100 ML BAG IVPB ONE (00:42)
[2018-01-20] MEDS ORDERED: LORazepam INJ* 2 MG/ML 1 ML VIAL IV PUSH ONE (00:44)
[2018-01-20] MEDS ORDERED: NS 0.9% 1000 ML* 1,000 ML IV SCH (02:30)
--- NOTE | 2018-01-20 02:33 | HP ---
CC: Dr. Carter * ADMISSION HISTORY AND PHYSICAL: DATE OF ADMISSION: 01/20/18 PATIENT OF: Nancy Pitts MD ATTENDING HOSPITALIST: Nancy Pitts MD * (DICTATED BY ZAMZAM HOLLIDAY) PRIMARY CARE PROVIDER: Karina Carter M.D. CHIEF COMPLAINT: Vomiting and constipation. HISTORY OF PRESENT ILLNESS: Mr. Miranda is an unfortunate 62-year-old gentleman who has past medical history significant for advanced severe dementia for which he has been nonverbal and has been a resident of [facility] for quite some time. The patient was brought to the emergency room by ambulance from his residence with complaints of coffee-ground emesis. According to a senior care report and his testimony, he had 1 episode of dark brown emesis earlier today and also patient has been constipated for the past 4 days. He has been taking milk of magnesia on an as needed basis at the senior care , but has had issues with constipation for quite some while. Prior to his coffee-ground emesis today, he has no history of a GI bleed in the past. He had laboratory workup in the emergency room that revealed stable hemoglobin and hematocrit with values of 15.8 and 46 respectively. His BUN was 20 indicating no active GI bleed at this point. He was also noted to have elevated lactic acid at 4.8 value probably consistent with dehydration. Given his presentation , he had a CT scan of the abdomen and pelvis that was consistent with probable early or partial distal small bowel obstruction as well as distended stomach and distal esophagus full of fluid and air. There was also a large amount of stool in the distal sigmoid colon and rectum consistent with his history of constipation. Most of the history part was taken from the senior care record as well as interviewing his who was in touch with the nurses at [facility] since patient is nonverbal due to his advanced severe dementia. Given his presentation and the findings of the CT scan, Dr. Correia from the surgical practice was consulted by the emergency room department physician and he agreed to see the patient in the morning for a surgical consultation and we would ask to see the patient for further evaluation and to consider admission. Since his presentation to the emergency room, the patient had no episodes of nausea or vomiting and hence NG tube placement is on hold for the time being. PAST MEDICAL HISTORY: As mentioned above, significant for advanced severe dementia. He also has history of anxiety and panic disorder. PAST SURGICAL HISTORY: Significant for dental surgery in the remote past. The patient has never had any abdominal surgeries. CURRENT MEDICATIONS: His medications at [facility] include: 1. Lipitor 20 mg p.o. daily. 2. Prozac 10 mg p.o. b.i.d. 3. Remeron 30 mg p.o. b.i.d. 4. Ditropan 10 mg p.o. daily. 5. Seroquel 25 mg p.o. b.i.d. 6. Altace 5 mg p.o. daily. ALLERGIES: He has no known drug allergies. FAMILY HISTORY: Reviewed and noncontributory. SOCIAL HISTORY: The patient never smoked. He does not drink alcohol. He has had severe dementia with lack of verbalization after which he has been a resident of [facility] for quite some time. His is the healthcare proxy carrier and he wishes to be DNR and his DNR MOLST form was updated. REVIEW OF SYSTEMS: Unable to obtain due to lack of verbalization. PHYSICAL EXAMINATION GENERAL: He is an upper middle-aged gentleman, appears older than stated age, confused at times and nonverbal, but appears comfortable and innate. VITAL SIGNS: Most recent set of vitals were his blood pressure of 148/103, temperature of 100.4, pulse of 109, O2 sat of 93% on room air with respiration of 16. HEENT: Head is normocephalic, atraumatic. Sclerae anicteric. PERRLA. EOMs intact. Oropharynx is pink and moist. NECK: Supple. Trachea midline. No cervical adenopathy or thyromegaly. LUNGS: Clear to auscultation bilaterally. HEART: Regular rate and rhythm. Normal S1 and S2 without rubs, murmurs, or gallops. BACK: Normal curvature. No CVA tenderness. ABDOMEN: Soft and nondistended. Assessment is difficult due to his non- verbalization, but there is no guarding or evidence of rebound tenderness. There is no rigidity or tympany noted. No hernias or masses palpated. EXTREMITIES: Without cyanosis, clubbing, or edema. NEUROLOGIC: The patient is alert, not oriented due to severe dementia. RECTAL EXAM: Deferred at this time. LABORATORY WORKUP: CBC with white count of 18,000, hemoglobin 15.8, hematocrit of 46, platelets of 480. His chemistry panel with sodium of 139, potassium 4.0, chloride 97, CO2 of 31, BUN of 20, and creatinine of 0.9. His glucose is 147, lactic acid elevated at 4.8, LFTs and lipase within normal limits. IMPRESSION: A 62-year-old gentleman with longstanding history of advanced severe dementia with non-verbalization as well as panic attacks, who presented to emergency room from his [facility] with 1 episode of coffee- ground emesis and history of constipation with CT scan findings consistent with partial small bowel obstruction. ASSESSMENT AND PLAN: 1. Partial small bowel obstruction, patient will be admitted for observation at medical floor. He had only 1 episode of coffee-ground emesis and appears to have no recurrent nausea or vomiting at this time. We will hold off any NG tube placement at this time and await bowel movement to resume. I will keep him on milk of magnesia to use as needed likely to try fleet enema at some point if his constipation remained an issue and we will await surgical input regarding his bowel obstruction. His leukocytosis is noted and I will likely to cover him with antibiotic, however, there was no definite source suggesting infection at this time. 2. Advanced severe dementia, we will provide supportive care and keep him on all his medication. 3. Panic disorder, we will continue his Prozac and Seroquel. 4. Hypertension, we will keep him on his Altace. 5. Hyperlipidemia. We will keep him on his statin therapy. 6. DVT prophylaxis. The patient is at moderate risk. We will use SCDs for the time being. 7. Code status, he is do not resuscitate. TIME SPENT: Approximately 60 minutes spent admitting this patient with greater than 50% on taking history and performing physical exam. I went on and discussed the case with Dr. Pitts, who agreed to plan of care. ZAMZAM HOLLIDAY [id number]/[facility] #: [id number] MTDCaitlin
[2018-01-20 05:55] LABS: ABS Basophils 0 10^3/ul (0-0.2); ABS Eosinophils 0 10^3/ul (0-0.6); ABS Lymphocytes 0.9 10^3/ul (1.0-4.8); ABS Monocytes 0.9 10^3/ul (0-0.8); ABS Neutrophils 11.8 10^3/ul (1.5-7.7); ABS Nucleated RBC 0 10^3/ul; Eosinophil % 0 % (0-6); Hematocrit 42 % (42-52); Hemoglobin 14.4 g/dl (14.0-18.0); Lymphocyte % 6.3 % (25-47); Mean Corpuscular HGB Conc 34 g/dl (31-36); Mean Corpuscular Hemoglobin 31 pg (27-31); Mean Corpuscular Volume 89 fL (80-94); Mean Platelet Volume 6.4 um3 (7.4-10.4); Nucleated Red Blood Cells % 0; Platelet Count 353 10^3/ul (150-450); Red Blood Count 4.71 10^6/ul (4.00-5.40); Red Cell Distribution Width 14 % (10.5-15); White Blood Count 13.7 10^3/ul (3.5-10.8)
[2018-01-20 08:19] LABS: EGFR Non-African American 94.6 (>60)
--- NOTE | 2018-01-20 09:26 | PN ---
Progress Note - Progress Note Date of Service: 01/20/18 Note: Brief Surgery Progress Note: (full consult dictated) S: Patient is nonverbal. No reported problems overnight. No reported vomiting or BM. O: Vital Signs - 8 hr 01/20/18 01/20/18 01/20/18 01:47 02:03 02:33 Temperature 98.4 F 97.9 F Pulse Rate 96 106 106 Respiratory 15 18 Rate Blood Pressure 170/78 147/91 147/91 (mmHg) O2 Sat by Pulse 96 94 94 Oximetry 01/20/18 01/20/18 02:49 04:30 Temperature 97.4 F Pulse Rate 95 Respiratory 18 20 Rate Blood Pressure 129/107 (mmHg) O2 Sat by Pulse 99 Oximetry Intake and Output Last 24 Hours 01/18/18 01/19/18 01/20/18 01/21/18 06:59 06:59 06:59 06:59 Intake Total 1105 Output Total 0 Balance 1105 Weight 159 lb 3.2 oz Intake: IV Fluids 1105 ABX - FLAGYL 105 Oral 0 Output: Urine 0 Other: Estimated Void Medium # Voids 1 Gen: NAD; appears comfortable; repetitive moments of LEs Heart: reg; mildly tachy Lungs: clear Abd: flat, nondistended; +BS; + tympany; soft; no apparent tenderness to palp; no palp masses CT from admission reviewed personally and with Dr. Correia A: pSBO; appears to be related to constipation P: will order AXR for f/u and check for gastric distension; if ok, could consider enemas (considerable stool in recto-sigmoid); if sufficient follow clinically and advance diet; will follow, though potential for surgical intervention appears low.
--- NOTE | 2018-01-20 09:27 | RAD ---
Indication: Vomiting, small bowel obstruction. Contrast: Administered 91.0 ml of OMNIPAQUE 300 mg/ml. CT of the abdomen and pelvis was performed after oral and IV contrast administration. Coronal and sagittal reconstructed images were obtained. Lung bases demonstrate no pleural fluid, nodules or masses. Heart is of normal size without evidence of pericardial effusion. The liver is normal in size. No focal lesions or intrahepatic duct dilatation is noted. The gallbladder demonstrates no calcified gallstones. No pericholecystic fluid or wall thickening is noted. Pancreas demonstrates no mass or pancreatic duct dilatation. The spleen is normal in size. No adrenal lesions are noted. The kidneys demonstrate symmetric nephrograms without focal lesions. No retroperitoneal lymphadenopathy is noted. The stomach is markedly dilated. Dilated loops of small bowel are noted. There appears to be collapsed distal loops of ileum. The possibility of small bowel obstruction should be considered. Exact zone of transition is not identified as there is significant motion artifact degrading images. Urinary bladder is unremarkable. There is no free air or evidence of perforation. The visualized bony structures demonstrate degenerative changes. Grade 1 spondylolisthesis of L3 on 4 is noted. IMPRESSION: Markedly dilated stomach and small bowel with suggestion of collapsed loops of distal bowel in the right lower quadrant. Possibility of small bowel obstruction should be considered. Fecal stasis is noted. Motion artifact degrades the images.
[2018-01-20] MEDS: Atorvastatin* 20 MG TAB PO SCH (11:06)
[2018-01-20] MEDS: FLUoxetine CAP* 10 MG PO SCH ×2 (11:08→21:23)
[2018-01-20] MEDS: Ramipril CAP* 5 MG PO SCH (11:11)
[2018-01-20] MEDS: Oxybutynin XL TAB* 5 MG PO SCH (11:18)
--- NOTE | 2018-01-20 12:55 | CONS ---
CC: [facility]; [facility] SURGICAL CONSULTATION NOTE: DATE OF CONSULT: 01/20/18 ATTENDING SURGEON: Dr. Jim Correia. CHIEF COMPLAINT: Partial small bowel obstruction. HISTORY OF PRESENT ILLNESS: This is a 62-year-old male, nonverbal, intermediate patient, whose history is obtained largely from the chart record. See complete admission history and physical. To reiterate, the patient was brought to the ED after an episode of coffee-ground emesis that occurred at the intermediate on 01/19/18. There had been no apparent prior similar episodes. There had been a 4- day history of constipation. His medication regimen at the intermediate does not apparently include any regular bowel regimen. There is apparently no history of prior abdominal surgery. Admission lab work was notable for an elevated white blood cell count of 18,100, which is down this morning to 13,700. Chemistries were notable for lactic acid of 4.8, which has not been repeated. CT scan of the abdomen and pelvis with oral and IV contrast showed a markedly dilated stomach as well as dilated proximal small bowel loops with apparent decompressed distal small bowel loops without a specific transition area noted. Also noted was significant stool in the lower colon and rectum as well as what appeared to be some dilated proximal colon. Per the nursing staff, there has been no subsequent vomiting since admission and no reported bowel activity. There has been no pain medication given. PHYSICAL EXAM: General: Well-nourished, but somewhat thin-appearing male, in no acute distress. He is nonverbal. He has repetitive purposeless movements of the lower extremities. Temperature 97.4, blood pressure 129/107, pulse 95, respirations 20, room air saturation 99%. Skin: Warm and dry. No suspicious rashes or lesions noted. Head: Atraumatic. Eyes, ears, nose, and throat: Unremarkable. Heart: Regular rate and rhythm. No murmur appreciated. Lungs: Clear to auscultation. No wheezes. Abdomen: Flat, nondistended, but tympanitic. Bowel sounds are present. Abdomen is soft and seemingly nontender as per lack of the patient's reaction. There is no rebound, guarding, or rigidity. DIAGNOSTIC STUDIES/LAB DATA: Labs and CT scan were reviewed personally and with Dr. Correia. IMPRESSION: Possible partial small bowel obstruction; constipation. PLAN: There do not appear to be any surgical indications at the present time. I will order a plain film to check progression of contrast and also to assess for ongoing gastric distention (no NG tube was placed). Until then, clear liquids appear to be appropriate. I would also consider enemas p.r. and at some point consideration of PEG solution p.o. to assist with constipation. We will continue to follow. ZAMZAM BILL [id number]/[facility] #: [id number] RANDY
[2018-01-20] MEDS ORDERED: Haloperidol INJ IV/IM* 5 MG/ML AMP IV SLOW PU PRN (14:28)
--- NOTE | 2018-01-20 14:28 | PN ---
Subjective Date of Service: 01/20/18 Interval History: Patient seen and examined at bedside. Pt is non-verbal with severe dementia. He is restless in bed, but appears to be comfortable at this time. Unable to do a ROS with Pt due to the fact that he is non-verbal. Family History: Unchanged from Admission Social History: Unchanged from Admission Past Medical History: Unchanged from Admission Objective Active Medications: Acetaminophen (Tylenol Tab*) 650 mg PO Q4H PRN Reason: FEVER/PAIN Al Hydrox/Mg Hydrox/Simethicone (Maalox Plus*) 30 ml PO Q6H PRN Reason: INDIGESTION Albuterol (Ventolin 2.5 Mg/3 Ml Neb.Miya*) 2.5 mg INH [id number] AWAKE PRN Reason: sob/wheezing Atorvastatin Calcium (Lipitor*) 20 mg PO DAILY MARIA LUISA Fluoxetine HCl (Prozac Cap*) 10 mg PO BID MARIA LUISA Sodium Chloride (Ns 0.9% 1000 Ml*) 1,000 mls @ 125 mls/hr IV PER RATE MARIA LUISA Magnesium Hydroxide (Milk Of [employer] Liq*) 30 ml PO Q4H PRN Reason: CONSTIPATION Mirtazapine (Remeron Tab*) 30 mg PO BEDTIME MARIA LUISA Ondansetron HCl (Zofran Inj*) 4 mg IV Q4H PRN Reason: NAUSEA/VOMITING Oxybutynin Chloride (Ditropan Xl Tab*) 10 mg PO DAILY MARIA LUISA Quetiapine Fumarate (Seroquel Tab*) 25 mg PO BEDTIME MARIA LUISA Ramipril (Altace Cap*) 5 mg PO DAILY MARIA LUISA Vital Signs - 8 hr 01/20/18 01/20/18 08:00 12:05 Temperature 97.3 F Pulse Rate 101 Respiratory 18 18 Rate Blood Pressure 143/87 (mmHg) O2 Sat by Pulse 98 Oximetry Oxygen Devices in Use Now: None Appearance: NAD, laying in bed Ears/Nose/Mouth/Throat: Mucous Membranes Moist Respiratory: Symmetrical Chest Expansion and Respiratory Effort, Clear to Auscultation Cardiovascular: NL Sounds; No Murmurs; No JVD, RRR Abdominal: NL Sounds; No Tenderness; No Distention Extremities: No Edema Skin: - - Abraion to left lower sternum/rib cage Neurological: Alert and Oriented x 3, NL Muscle Strength and Tone Nutrition: Taking PO's Result Diagrams: 01/20/18 05:19 01/20/18 05:19 Microbiology and Other Data: Microbiology 01/20/18 02:30 Nasal Screen MRSA (PCR) - Final Nasal Mrsa Not Detected 01/19/18 19:40 Stool Occult Blood (MIKHAIL) - Final Stool Assess/Plan/Problems-Billing Assessment: Mr. Miranda is a 62 yo male with PMH significant for - Patient Problems (1) Partial small bowel obstruction Code(s): K56.600 - PARTIAL INTESTINAL OBSTRUCTION, UNSPECIFIED TO CAUSE SNOMED Code(s): 164192139 Comment: - No NG tube in place at this time - ABD xray pending - General Surgery consult, input appreciated - Continue MOM PRN, will give a fleets enema this afternoon - Will consider trying Golytely if no BM later today (2) Leukocytosis Code(s): D72.829 - ELEVATED WHITE BLOOD CELL COUNT, UNSPECIFIED SNOMED Code(s) : 506479335 Comment: - Unclear etiology at this time - Afebrile - Chest x ray with no acute findings - Will check a UA if able to obtain a sample (3) Panic disorder Code(s): F41.0 - PANIC DISORDER [EPISODIC PAROXYSMAL ANXIETY] SNOMED Code(s): 574716281 Comment: - Continue supportive care, Prozac and Seroquel (4) Dementia Code(s): F03.90 - UNSPECIFIED DEMENTIA WITHOUT BEHAVIORAL DISTURBANCE SNOMED Code(s): 09271975 Comment: - Severe advanced dementia - Continue supportive care (5) HTN (hypertension) Code(s): I10 - ESSENTIAL (PRIMARY) HYPERTENSION SNOMED Code(s): 60638637 Comment: - SBP 120-170's - Continue Altace (6) HLD (hyperlipidemia) Code(s): E78.5 - HYPERLIPIDEMIA, UNSPECIFIED SNOMED Code(s): 28583040 Comment: - Continue statin (7) DVT prophylaxis Code(s): EWG0431 - SNOMED Code(s): 580831246 Comment: - Continue SCDs (8) DNR (do not resuscitate) Status and Disposition: OBV. Discharge back to [facility] when medically stable. Attending: Krystin Shipley
[2018-01-20] MEDS ORDERED: Haloperidol INJ IV/IM* 5 MG/ML AMP ONE (14:31)
[2018-01-20] MEDS ORDERED: Haloperidol INJ IV/IM* 5 MG/ML AMP IM PRN (14:33)
--- NOTE | 2018-01-20 14:39 | RAD ---
INDICATION: Vomiting COMPARISON: CT abdomen pelvis dated January 19, 2018 that shows multiple dilated loops of air-filled small bowel TECHNIQUE: Supine and upright views of the abdomen were obtained. FINDINGS: Similar to the previous day's CT, there are dilated air-filled loops of small and large bowel. On the crosstable lateral there are air-fluid levels seen throughout the colon. There is no definite free intraperitoneal air. There is an oval shaped hyperdense structure in the pelvis measuring 9.6 x 16.2 cm that is presumably the urinary bladder filled with excreted contrast from yesterday's contrast-enhanced CT.. IMPRESSION: 1. Dilated loops of small and large bowel with no definite evidence of free intraperitoneal gas. 2. Distended urinary bladder. Please correlate to signs or symptoms of neurogenic bladder and/or bladder bladder outlet obstruction.
[2018-01-20] MEDS ORDERED: Sodium Phosphate ADULT ENEMA* 118 ml bottle PR ONE (14:53)
[2018-01-20] MEDS ORDERED: Bisacodyl SUPP* 10 MG SUPP PR PRN (16:04)
[2018-01-20] MEDS ORDERED: Mirtazapine TAB* 15 MG PO SCH (21:00)
[2018-01-20] MEDS ORDERED: QUEtiapine TAB* 25 MG PO SCH (21:00)
[2018-01-21 08:37] VITALS: BP 146/84
[2018-01-21] MEDS: Ramipril CAP* 5 MG PO SCH (10:00)
[2018-01-21] MEDS: FLUoxetine CAP* 10 MG PO SCH (10:00)
[2018-01-21] MEDS: Oxybutynin XL TAB* 5 MG PO SCH (10:00)
[2018-01-21] MEDS: Atorvastatin* 20 MG TAB PO SCH (10:00)
--- NOTE | 2018-01-21 11:55 | PN ---
Subjective Date of Service: 01/21/18 Interval History: Mr. Miranda is non verbal but does not appear to be in any acute distress. Family History: Unchanged from Admission Social History: Unchanged from Admission Past Medical History: Unchanged from Admission Objective Active Medications: Acetaminophen (Tylenol Tab*) 650 mg PO Q4H PRN Al Hydrox/Mg Hydrox/Simethicone (Maalox Plus*) 30 ml PO Q6H PRN Albuterol (Ventolin 2.5 Mg/3 Ml Neb.Miya*) 2.5 mg INH [id number] AWAKE PRN Atorvastatin Calcium (Lipitor*) 20 mg PO DAILY MARIA LUISA Bisacodyl (Dulcolax Supp*) 10 mg RI DAILY PRN Fluoxetine HCl (Prozac Cap*) 10 mg PO BID MARIA LUISA Haloperidol Lactate (Haldol Inj Iv/Im*) 2 mg IM Q6H PRN Magnesium Hydroxide (Milk Of Magnesia Liq*) 30 ml PO Q4H PRN Mirtazapine (Remeron Tab*) 30 mg PO BEDTIME MARIA LUISA Ondansetron HCl (Zofran Inj*) 4 mg IV Q4H PRN Oxybutynin Chloride (Ditropan Xl Tab*) 10 mg PO DAILY MARIA LUISA Quetiapine Fumarate (Seroquel Tab*) 25 mg PO BEDTIME MARIA LUISA Ramipril (Altace Cap*) 5 mg PO DAILY MARIA LUISA Vital Signs: Temp Pulse Resp BP Pulse Ox 97.6 F 87 16 146/84 97 01/21/18 07:33 01/21/18 07:33 01/21/18 08:00 01/21/18 07:33 01/21/18 07:33 Oxygen Devices in Use Now: None Appearance: Male sitting up in chair in NAD Eyes: No Scleral Icterus Ears/Nose/Mouth/Throat: Mucous Membranes Moist Neck: Trachea Midline Respiratory: Symmetrical Chest Expansion and Respiratory Effort, Clear to Auscultation Cardiovascular: NL Sounds; No Murmurs; No JVD Abdominal: NL Sounds; No Tenderness; No Distention Neurological: - - Alert, sitting up in chair, nonverbal Nutrition: Taking PO's Result Diagrams: 01/20/18 05:19 01/20/18 05:19 Assess/Plan/Problems-Billing Assessment: Mr. Miranda is a 62 yo male with PMH significant for dementia who was admitted on 01/20/18 with concern for vomiting and constipation. - Patient Problems (1) Partial small bowel obstruction Comment: - Resolved, patient tolerating oral intake and has had a bowel movement. - General Surgery consult, input appreciated - Continue routine bowel regimen, MOM PRN (2) Leukocytosis Comment: - Suspect secondary to constipation. - Reviewed with patient's sister that obtaining a urine sample will require straight cath and chemical/physical sedation. She does not wish us to do this but will continue to monitor at [place] for fever, urinary retention or signs of UTI. (3) Dementia Comment: - Severe advanced dementia - Continue supportive care (4) HLD (hyperlipidemia) Comment: - Continue statin (5) HTN (hypertension) Comment: - SBP 120-170's - Continue Altace (6) Panic disorder Comment: - Continue supportive care, Prozac and Seroquel (7) DVT prophylaxis Comment: - Continue SCDs (8) DNR (do not resuscitate) Comment: Status and Disposition: Discharge back to [facility].
--- NOTE | 2018-01-21 13:13 | DS ---
CC: [facility] * This discharge summary should serve as the history and physical for admission to [facility]. DATE OF ADMISSION: 01/20/2018. DATE OF DISCHARGE: 01/21/2018. ATTENDING PHYSICIAN: Dr. Ramone Jones * (dictation provided by Kyung Justice NP ). PRIMARY DIAGNOSIS: Partial small bowel obstruction related to constipation. SECONDARY DIAGNOSES: 1. Advanced dementia. 2. Panic disorder. 3. Hypertension. MEDICATIONS AT THE TIME OF DISCHARGE: 1. Ramipril 5 mg p.o. daily. 2. Seroquel 25 mg p.o. at bedtime. 3. Oxybutynin 10 mg p.o. daily. 4. Mirtazapine 30 mg p.o. at bedtime. 5. Fluoxetine 10 mg p.o. b.i.d. 6. Atorvastatin 20 mg p.o. daily. New medications: 1. Senna one tab p.o. daily. 2. Milk of Magnesia 30 ml p.o. daily prn. 3. Docusate 100 mg p.o. at bedtime. 4. Dulcolax suppository 10 mg per rectum daily prn. 5. Tylenol 650 mg p.o. q.4 hours prn. HOSPITAL COURSE: Mr. Miranda is a 62-year-old male who is nonverbal related to advanced dementia who presented to the ED on 01/20/2018 with concern for vomiting and constipation from [facility]. Please see the dictated history and physical from ZAMZAM Benson for complete details. In brief, there was reported to be one episode of dark brown emesis prior to admission and that the patient had been constipated for four days. In the emergency room, he had a chest x-ray which showed "no radiographic evidence of acute cardiopulmonary abnormality on this portable chest x-ray." He had a CT abdomen and pelvis which showed "markedly dilated stomach and small bowel with suggestion of collapsed loops of distal bowel in the right lower quadrant; possibility of small bowel obstruction should be considered; fecal stasis is noted." Mr. Miranda was admitted to the hospital for a partial small bowel obstruction. I will note that he had a white blood cell count elevated to 18.1 on arrival and a lactic acid of 4.8. He is afebrile and his vitals have remained stable. He had bowel rest, but did not require placement of an NG tube. The following morning, he had an abdominal x-ray which showed some persistent dilated loops of bowel and a distended urinary bladder. The patient was seen in consultation by ZAMZAM Orellana from the [facility] team. He recommended that there was no surgical intervention indicated and that appropriate medical management could include efforts to promote bowel motility. Mr. Miranda has since had two bowel movements yesterday. His diet has been advanced and he is tolerating oral intake well. There was concern for possible urinary retention, but he is urinating with no evidence of retention, but is incontinent. Mr. Miranda did have an elevated white blood cell count and concern for possible urinary retention on arrival. We have not been able to obtain a urinalysis of his refusal to allow care. Obtaining a sample would require chemical and physical sedation. I have reviewed this with the patient's sister who is the healthcare proxy and she states that at this time she would not want us to perform this procedure. There is a low suspicion for UTI given the overall picture and I suspect his elevated white blood cell count and urinary retention could as easily been related to constipation. I have counseled her that he should be monitored for signs of a UTI, including fever, urinary retention, pain on palpation of the lower abdomen, or other symptoms. Mr. Miranda is doing well today. Plans are for him to be discharged back to [facility]. DISPOSITION: To [facility]. DIET: Regular. ACTIVITY: As tolerated. FOLLOW-UP PLAN: Please follow-up per routine with the providers at [facility]. Approximately 60 minutes were spent in the discharge of this patient, more than half that time was spent with the patient at the bedside. KYUNG JUSTICE, POLY [id number]/[facility] #: [id number] RANDY
== END 2018-01-21 15:43 ==
LOC: ED 18:59 → SSU 01-20 00:04
PROVIDERS: ADMIT Pediatrics; ATTEND Internal Medicine
DX: K56.600 Partial intestinal obstruction, unspecified as to cause (principal); K59.00 Constipation, unspecified; F03.90 Unspecified dementia, unspecified severity, without behavioral disturbance, psychotic disturbance, mood disturbance, and anxiety; F41.0 Panic disorder [episodic paroxysmal anxiety]; I10 Essential (primary) hypertension; R11.10 Vomiting, unspecified; D72.829 Elevated white blood cell count, unspecified; E78.5 Hyperlipidemia, unspecified
CPT/HCPCS: 36415; 71045; 74019; 74177; 80048; 80053; 82270; 83605; 83690; 84484; 85025; 85610; 85730; 87641; 93005; 96374; 96375; 99283; A9270-GY; G0378; J0744; J1630; J2060; J2405; J3490; Q9967

== ENCOUNTER 2018-04-18 18:09 | Emergency (ER) | payer MEDICARE ==
--- NOTE | 2018-04-18 18:24 | ED ---
Substance Abuse/Use - HPI Summary HPI Summary: HPI LIMITED DUE TO LEVEL 5 CAVEAT - PATIENT IS NONVERBAL This patient is a 62 year old nonverbal due to advanced severe dementia [place] presenting to [facility] with a chief complaint of acetone consumption (nailpolish remover) that occurred at 1700 today. Per EMS, patient consumed approximately 4 ounces of Acetone while at [facility]. EMS did not see the bottle of acetone. Per [facility] (called by Maricel charge nurse), the primary ingredients are acetone, water, propylene carbonate, dimethyl glutamate and dimethyl agitate (listed in order of decreasing concentration). Per [facility], there was three ounces left in the bottle and some was consumed and some was spilled on himself. Pt did not vomit at [facility]. Home Medications Medication Instructions Recorded Confirmed Type Atorvastatin* [Lipitor 20 MG*] 20 mg PO DAILY 09/05/17 09/05/17 History FLUoxetine CAP* [Prozac CAP*] 10 mg PO BID 09/05/17 09/05/17 History Mirtazapine TAB* [Remeron TAB*] 30 mg PO BEDTIME 09/05/17 09/05/17 History Oxybutynin XL TAB* [Ditropan XL 10 mg PO DAILY 09/05/17 09/05/17 History TAB*] QUEtiapine TAB* [Seroquel 25 MG 25 mg PO BEDTIME 09/05/17 09/05/17 History TAB*] Ramipril CAP* [Altace CAP*] 5 mg PO DAILY 09/05/17 09/05/17 History Acetaminophen TAB* [Tylenol TAB*] 650 mg PO Q4H PRN tab 01/21/18 Rx Bisacodyl SUPP* [Dulcolax Supp*] 10 mg NE DAILY PRN supp 01/21/18 Rx Docusate CAP* [Colace Cap*] 100 mg PO BEDTIME #30 cap 01/21/18 Rx Magnesium Hydroxide LIQ* [Milk of 30 ml PO DAILY PRN udc 01/21/18 Rx Magnesia LIQ*] Senna TAB* [Senokot TAB*] 1 tab PO DAILY #30 tab 01/21/18 Rx - History Of Current Complaint Stated Complaint: INDIGESTION Time Seen by Provider: 04/18/18 18:17 Hx Obtained From: EMS, Other: - [facility] RN talked with Mar[facility] ED charge nurse Hx From Patient Unobtainable Due To: Other - Patient is nonverbal Ingestion History: Type/Name Of Drug - Acetone, Amount Ingested - Approximatley 4 ounces, Approximate Time Of Ingestion - 1700 Overdose Characteristics: Oral Severity Initially: Mild Severity Currently: None Character: Other - acting his usual self per Samanta Rojas Aggravating Factor(s): Nothing Alleviating Factor(s): Nothing Associated Signs And Symptoms: Negative - Allergies/Home Medications Allergies/Adverse Reactions: Allergies Allergy/AdvReac Type Severity Reaction Status Date / Time No Known Allergies Allergy Verified 09/05/17 10:06 PMH/Surg Hx/FS Hx/Imm Hx Previously Healthy: No - PMHx LIMITED DUE TO LEVEL 5 CAVEAT - PATIENT IS NONVERBAL AND HX "MR" Endocrine/Hematology History: Denies: Hx Anticoagulant Therapy, Hx Diabetes Cardiovascular History: Reports: Hx Hypercholesterolemia, Hx Hypertension Denies: Hx Pacemaker/ICD History: Reports: Other Problems/Disorders - urinary incontinence Denies: Hx Renal Disease Sensory History: Denies: Hx Contacts or Glasses, Hx Hearing Aid Opthamlomology History: Denies: Hx Contacts or Glasses Neurological History: Reports: Hx Dementia - non communicative, advanced, severe Psychiatric History: Reports: Hx Anxiety, Hx Panic Disorder - Surgical History Surgery Procedure, Year, and Place: DENTAL SURGERY Infectious Disease History: No Infectious Disease History: Denies: Traveled Outside the [place] in Last 30 Days - Family History Known Family History: Positive: None - Social History Occupation: Disabled Lives: [facility] Alcohol Use: None Hx Substance Use: No Substance Use Type: Reports: None Hx Tobacco Use: No Smoking Status (MU): Never Smoked Tobacco Review of Systems - ROS Summary Review of Systems Summary: ROS LIMITED DUE TO LEVEL 5 CAVEAT - PATIENT IS NONVERBAL Constitutional: Negative Cardiovascular: Negative Respiratory: Negative Gastrointestinal: Negative Psychological: Normal All Other Systems Reviewed And Are Negative: Yes - Comments Additional Review of Systems Comments: LEVEL 5 CAVEAT, NONVERBAL, SEVERE DEMENTIA Physical Exam - Summary Physical Exam Summary: PE LIMITED DUE TO LEVEL 5 CAVEAT - PATIENT IS NONVERBAL Appearance: Well-appearing, no pain distress, well-nourished, examined in wheelchair, patient anxious if attempt to move to stretcher, patient can bear weight Skin: Warm, color reflects adequate perfusion, dry Head: Normal Head/Face inspection, atraumatic Eyes: Conjunctiva clear, PERRL, EOMI, no nystagmus ENT: Normal inspection, no drooling, no oral lesions, no blood in mouth Neck: Supple, no nodes, no JVD Respiratory: Lungs clear, normal breath sounds, no respiratory distress Cardio: RRR, No murmur, pulses normal, brisk capillary refill Abdomen: Soft, nontender Bowel sounds: Present Musculoskeletal: Strength Intact/ROM intact, no calf tenderness, no edema. Psychological: Nonverbal, cooperative when in wheelchair, becomes anxious when touched or asked to move to stretcher Neuro: Alert, muscle tone normal, no focal deficit, ambulatory, no tremor Triage Information Reviewed: Yes Vital Signs Reviewed: Yes Re-Evaluation - Re-Evaluation First Eval Re-Evaluation Time: 19:57 Change: Unchanged Comment: Patient is eating an ice cream and a sandwich, and is coloring. Second Eval Re-Evaluation Time: 20:50 Change: Unchanged Comment: Pt is unchanged, no sign of intoxication. No vomiting in ED. No CLAY TEMPERER depression. Stable for discharge. Course/Dx - Course Course Of Treatment: LEVEL 5 CAVEAT PATIENT IS NONVERBAL. This patient is a 62 year old M with severe dementia and nonverbal, BIBA presenting to [facility] with a chief complaint of acetone consumption that occurred at 1700 today. Per EMS, patient consumed approximately 4 ounces of Acetone while at [facility]. EMS did not see the bottle of acetone. Per [facility], the primary ingredients are acetone, water, propylene carbonate, dimethyl glutamate and agitate (listed in order of decreasing concentration). Per [facility], there was three ounces left in the bottle and some was consumed and some was spilled on himself. Physical Exam Findings: Patient examined in wheelchair, nonverbal. Nml. No vomiting in the ED. No signs of intoxication. No odor of alcohol. Fariba from poison control communicated that we should watch for CLAY TEMPERER depression, nystagmus, and signs of intoxication. On hold with poison control at 1834. Poison control communicated at 1836 to observe the patient for signs of toxicity. She stated that if we were not able to complete testing and the patient does not appear toxic that he does need mandatory observation or testing. Pt was able to eat and ambulate in the ED and was in no distress. Patient will be discharged back to [facility] with follow up from Dr. Carter. - Diagnoses Differential Diagnosis/HQI/PQRI: Positive: Other - accidental overdose Provider Diagnoses: Accidental ingestion of toxic substance, Dementia - Physician Notifications Instructed by Provider To: Other - Consult with poison control at 1820. Fariba from poison control communicated that we should watch for CLAY TEMPERER depression, nystagmus, and signs of intoxication. On hold with poison control at 1834. Poison control communicated at 1836 to observe the patient for signs of toxicity. She stated that if we were not able to complete testing and the patient does not appear toxic then that is alright. Discharge - Sign-Out/Discharge Documenting (check all that apply): Patient Departure - Discharge home - Discharge Plan Condition: Stable Disposition: HOME Patient Education Materials: Adult Overdose (ED) Referrals: Karina Carter MD [Primary Care Provider] - 1 Day Additional Instructions: Dr. Avina did not detect any sign of toxicity from your ingestion today. Your care was discussed with Poison Control twice. You were monitored in the ER and you showed no adverse effects. Return to the ER if any vomiting, nystagmus, signs of central nervous system depression, gastritis or any other new or worsening symptoms. - Billing Disposition and Condition Condition: STABLE Disposition: Home - Attestation Statements Document Initiated by Luz Marina: Yes Documenting Scribe: Katie Wing Provider For Whom Luz Marina is Documenting (Include Credential): Dr. Lia Avina MD Scribe Attestation: Katie Logan scribed for Dr. Lia Avina MD on 04/18/18 at 2127. Scribe Documentation Reviewed: Yes Provider Attestation: The documentation as recorded by the Katie fuchs accurately reflects the service I personally performed and the decisions made by me, Dr. Lia Avina MD
[2018-04-18 20:59] VITALS: BP 128/93
== END 2018-04-18 20:57 | disposition home or self-care (01) ==
LOC: ED 18:09
DX: T52.4X1A Toxic effect of ketones, accidental (unintentional), initial encounter (principal); Y92.129 Unspecified place in nursing home as the place of occurrence of the external cause; F03.90 Unspecified dementia, unspecified severity, without behavioral disturbance, psychotic disturbance, mood disturbance, and anxiety
CPT/HCPCS: 99283

== ENCOUNTER 2018-09-21 15:21 | Emergency (ER) | payer MEDICARE ==
[2018-09-21 16:32] VITALS: BP 149/86
--- NOTE | 2018-09-21 17:07 | ED ---
Head Injury - HPI Summary HPI Summary: Patient is a 62-year-old male with a history of dementia presents by ambulance after a probable fall. Patient is from [facility] and is nonverbal at baseline. Patient is also non-ambulatory and has severe dementia. Per report from [facility], patient was found next to bed and it is assumed he rolled out of the bed and hit the back of his head. Also may be having the pain. Patient is extremely anxious. Level V caveat d/t dementia. No lacerations, no vomiting. No obvious signs of trauma throughout. No hematomas. Patient is unable to answer questions. No anticoagulant use. - History Of Current Complaint Chief Complaint: EDHeadInjury Stated Complaint: FALL PER EMS Time Seen by Provider: 09/21/18 15:31 Hx Obtained From: Family/Developer Evangelist, EMS Hx From Patient Unobtainable Due To: Dementia Mechanism Of Injury: Blunt Trauma - Probable Onset/Duration: Started Hours Ago Onset of Pain: Hours Severity Currently: None Pain Intensity: 0 Pain Scale Used: 0-10 Numeric - Risk Factors SDH Risk Factor: Male - Allergies/Home Medications Allergies/Adverse Reactions: Allergies Allergy/AdvReac Type Severity Reaction Status Date / Time No Known Allergies Allergy Verified 09/21/18 15:47 Home Medications: Home Medications Bisacodyl SUPP* [Dulcolax Supp*] 10 mg HI Q12HR PRN 09/21/18 [History Confirmed 09/21/18] Docusate CAP* [Colace Cap*] 100 mg PO BID 09/21/18 [History Confirmed 09/21/18] PARoxetine HCL TAB* [Paxil TAB*] 10 mg PO QAM 09/21/18 [History Confirmed ] QUEtiapine TAB* [Seroquel 25 MG TAB*] 50 mg PO BID 09/21/18 [History Confirmed 09/21/18] Senna TAB* [Senokot TAB*] 2 tab PO BID 09/21/18 [History Confirmed 09/21/18] PMH/Surg Hx/FS Hx/Imm Hx Previously Healthy: No Endocrine/Hematology History: Denies: Hx Anticoagulant Therapy, Hx Diabetes Cardiovascular History: Reports: Hx Hypercholesterolemia, Hx Hypertension Denies: Hx Pacemaker/ICD History: Reports: Other Problems/Disorders - urinary incontinence Denies: Hx Renal Disease Sensory History: Denies: Hx Contacts or Glasses, Hx Hearing Aid Opthamlomology History: Denies: Hx Contacts or Glasses Neurological History: Reports: Hx Dementia - non communicative, advanced, severe , Hx Developmental Delay Psychiatric History: Reports: Hx Anxiety, Hx Panic Disorder - Surgical History Surgery Procedure, Year, and Place: DENTAL SURGERY - Immunization History Hx Pertussis Vaccination: No Immunizations Up to Date: Yes Infectious Disease History: No Infectious Disease History: Denies: Traveled Outside the [place] in Last 30 Days - Family History Known Family History: Positive: None - Social History Occupation: Unemployed, Disabled Lives: [facility] Alcohol Use: None Hx Substance Use: No Substance Use Type: Reports: None Hx Tobacco Use: No Smoking Status (MU): Never Smoked Tobacco Review of Systems Negative: Fever, Chills, Skin Diaphoresis Negative: Cough Negative: Vomiting, Diarrhea Positive: incontinence - baseline Positive: Other - small abrasion to the L knee Positive: Anxious All Other Systems Reviewed And Are Negative: Yes Physical Exam Triage Information Reviewed: Yes Vital Signs On Initial Exam: Initial Vitals Temp Pulse Resp BP Pulse Ox 98.1 F 96 20 118/62 93 09/21/18 15:23 09/21/18 15:23 09/21/18 15:23 09/21/18 15:23 09/21/18 15:23 Vital Signs Reviewed: Yes Completion Of Physical Exam Limited Due To: Dementia Appearance: Positive: Well-Appearing Skin: Positive: Skin Color Reflects Adequate Perfusion, Other - small abrasion to the l knee Head/Face: Positive: Normal Head/Face Inspection Eyes: Positive: EOMI, Conjunctiva Clear Neck: Positive: Nontender Respiratory/Lung Sounds: Positive: Clear to Auscultation, Breath Sounds Present Cardiovascular: Positive: RRR, Pulses are Symmetrical in both Upper and Lower Extremities. Negative: Leg Edema Left, Leg Edema Right Musculoskeletal: Positive: Normal, Strength/ROM Intact Psychiatric: Positive: Anxious Diagnostics - Vital Signs Vital Signs Temp Pulse Resp BP Pulse Ox 09/21/18 16:31 97.6 F 98 16 149/86 96 09/21/18 15:23 98.1 F 96 20 118/62 93 - Laboratory Lab Statement: Any lab studies that have been ordered have been reviewed, and results considered in the medical decision making process. Head Injury Course/Dx Course Of Treatment: Patient is currently DNR, DNI. No interventions and no hospitalizations. On physical examination, there is no evidence of trauma throughout. Unclothed the patient and thoroughly assessed for any signs of trauma or injuries as well as flexion and extension of all extremities with no signs of discomfort. No neck pain. No cephalohematomas, lacerations or ecchymosis. Patient is very anxious. No images are done at this time as patient appears to be in no acute distress, patient is comfort care, an no signs of trauma. He appears well and at his baseline. Small abrasion to the L knee without ecchymosis or swelling. Flexion and extension without signs of obvious discomfort. Patient is transferred back to [facility] by ambulance. - Diagnoses Differential Diagnosis/HQI/PQRI: Other - Head injury Provider Diagnoses: Fall Discharge - Sign-Out/Discharge Documenting (check all that apply): Patient Departure Patient Received Moderate/Deep Sedation with Procedure: No - Discharge Plan Condition: Stable Disposition: HOME Patient Education Materials: Head Injury (ED) Referrals: Krystin Shipley DO [Primary Care Provider] - Additional Instructions: No findings on physical exam Patient appears at his baseline. No other findings or images are needed at this time - Billing Disposition and Condition Condition: STABLE Disposition: Home
== END 2018-09-21 16:31 | disposition home or self-care (01) ==
LOC: ED 15:21
DX: S09.90XA Unspecified injury of head, initial encounter (principal); W06.XXXA Fall from bed, initial encounter; Y92.122 Bedroom in nursing home as the place of occurrence of the external cause; F03.90 Unspecified dementia, unspecified severity, without behavioral disturbance, psychotic disturbance, mood disturbance, and anxiety; I10 Essential (primary) hypertension; E78.00 Pure hypercholesterolemia, unspecified; R32 Unspecified urinary incontinence; F41.9 Anxiety disorder, unspecified; F32.9 Major depressive disorder, single episode, unspecified
CPT/HCPCS: 99282